=== PATIENT | female | born 1970 | race Caucasian/White ===

== ENCOUNTER 2017-06-23 08:43 | Emergency (ER) | payer OTHER ==
--- NOTE | 2017-06-23 08:51 | EDPHY ---
H & P Time Seen by Provider: 06/23/17 08:51 HPI/ROS: CHIEF COMPLAINT: Dyspnea, palpitations HISTORY OF PRESENT ILLNESS: The patient is a healthy athletic female presents to the ED with a one-week history of intermittent dyspnea and palpitations. The patient reports that there is a family history of atrial fibrillation and she was concerned that she may have developed a condition. The patient exercises frequently without complaints of chest pain or shortness of breath. She has a fairly low resting heart rate. She does endorse some intermittent symptoms of presyncope and reports significant dyspnea yesterday. The patient currently is asymptomatic. She denies any chest pain, asymmetric calf pain or swelling, fever, cough or congestion or other complaints. REVIEW OF SYSTEMS: A comprehensive 10 point review of systems is otherwise negative aside from elements mentioned in the history of present illness. Source: Patient Exam Limitations: No limitations - Medical/Surgical History PMH: Past medical history: Noncontributory - Social History Smoking Status: Never smoked Alcohol Use: None - Physical Exam Exam: General Appearance: Alert, no distress Eyes: Pupils equal and round no pallor or injection ENT, Mouth: Mucous membranes moist Respiratory: There are no retractions, lungs are clear to auscultation Cardiovascular: Bradycardic, no rubs murmurs or gallops Gastrointestinal: Abdomen is soft and nontender, no masses, bowel sounds normal Neurological: 5/5 strength all 4 extremities Skin: Warm and dry, no rashes Musculoskeletal: Neck is supple nontender Extremities: No asymmetric calf pain or swelling, 2+ dorsalis pedis and posterior tibial pulses bilaterally Constitutional: Initial Vital Signs Temperature (C) 36.5 C 06/23/17 08:49 Heart Rate 46 L 06/23/17 08:49 Respiratory Rate 18 06/23/17 08:49 Blood Pressure 124/65 H 06/23/17 08:49 O2 Sat (%) 99 06/23/17 08:49 O2 Delivery Mode Room Air Allergies/Adverse Reactions: No Known Allergies Allergy (Verified 06/23/17 08:49) Home Medications: Medication Instructions Recorded NK [No Known Home Meds] 06/23/17 Medical Decision Making - Diagnostics EKG Interpretation: EKG: Complete interpretation has been separately recorded in the [facility] archive. Summary impression: Sinus bradycardia Imaging Results: Imaging Impressions Chest X-Ray 06/23/17 09:03 Impression: Normal chest x-ray. ED Course/Re-evaluation: The patient presents to the ED with palpitations, dyspnea and slight presyncope. The patient reports the symptoms have been occurring intermittently over the past week. There is no evidence of an obvious arrhythmia noted in the emergency department. The patient does have a chronic sinus bradycardia. The patient's D-dimer test is negative which I feel adequately excludes pulmonary embolism. She has no evidence of heart failure or cardiomegaly noted on her chest x-ray. Given the patient's bradycardia a echocardiogram was obtained and reviewed with the on-call environmental journalist Dr. Longoria. There is no obvious valvular disease, pericardial effusion or significant wall motion abnormality. The patient is well-appearing and hemodynamically stable. She is an active female without any complaints of exertional chest pain or shortness of breath. The patient will be referred to our cardiology service for consideration of a Holter monitor. She is advised to return to the ED for any worsening symptoms or other concerns. Differential Diagnosis: Differential diagnosis considered includes pulmonary embolism, arrhythmia, anemia, dehydration, valvular heart disease, cardiomyopathy - Data Points Laboratory Results: Laboratory Results 06/23/17 09:02 06/23/17 09:02 06/23/17 06/23/17 06/23/17 09:02 09:02 09:02 WBC 5.37 10^3/uL 10^3/uL (3.80-9.50) RBC 4.68 10^6/uL 10^6/uL (4.18-5.33) Hgb 12.4 g/dL L g/dL (12.6-16.3) Hct 38.2 % % (38.0-47.0) MCV 81.6 fL fL (81.5-99.8) MCH 26.5 pg L pg (27.9-34.1) MCHC 32.5 g/dL g/dL (32.4-36.7) RDW 13.4 % % (11.5-15.2) Plt Count 206 10^3/uL 10^3/uL (150-400) MPV 8.7 fL fL (8.7-11.7) Neut % (Auto) 49.6 % % (39.3-74.2) Lymph % (Auto) 41.5 % % (15.0-45.0) [place] % (Auto) 7.1 % % (4.5-13.0) Eos % (Auto) 0.9 % % (0.6-7.6) Baso % (Auto) 0.7 % % (0.3-1.7) Nucleat RBC Rel Count 0.0 % % (0.0-0.2) Absolute Neuts (auto) 2.66 10^3/uL 10^3/uL (1.70-6.50) Absolute Lymphs (auto) 2.23 10^3/uL 10^3/uL (1.00-3.00) Absolute Monos (auto) 0.38 10^3/uL 10^3/uL (0.30-0.80) Absolute Eos (auto) 0.05 10^3/uL 10^3/uL (0.03-0.40) Absolute Basos (auto) 0.04 10^3/uL 10^3/uL (0.02-0.10) Absolute Nucleated RBC 0.00 10^3/uL 10^3/uL (0-0.01) Immature Gran % 0.2 % % (0.0-1.1) Immature Gran # 0.01 10^3/uL 10^3/uL (0.00-0.10) D-Dimer 0.44 ug/mLFEU ug/mLFEU (0.00-0.50) Sodium 139 mEq/L mEq/L (135-145) Potassium 3.8 mEq/L mEq/L (3.5-5.2) Chloride 102 mEq/L mEq/L (97-110) Carbon Dioxide 30 mEq/l mEq/l (22-31) Anion Gap 7 mEq/L L mEq/L (8-16) BUN 16 mg/dL mg/dL (7-23) Creatinine 0.7 mg/dL mg/dL (0.6-1.0) Estimated GFR > 60 Glucose 80 mg/dL mg/dL (70-100) Calcium 9.0 mg/dL mg/dL (8.5-10.4) Troponin I < 0.012 ng/mL ng/mL (0.000-0.034) NT-Pro-B Natriuret Pep 133 pg/mL H pg/mL (0-125) Departure - Departure Disposition: Home, Routine, Self-Care Clinical Impression: Palpitations Condition: Good Instructions: Heart Palpitations (ED) Additional Instructions: 1. Please return to the ED for any markedly worsening symptoms or other concerns. 2. The EKG, blood testing and echocardiogram demonstrated no evidence of acute disease. 3. I do recommend following up with the environmental journalist you have been referred to for consideration of a Holter monitor if you continue to have any symptoms of palpitations. Referrals: Priscilla Ramos MD [Medical Doctor] - As per Instructions
--- NOTE | 2017-06-23 09:02 | CPEKG ---
Heart Rate: 41 RR Interval: 1463 P-R Interval: 136 QRSD Interval: 94 QT Interval: 500 QTC Interval: 413 P [place]: 56 QRS [place]: 51 T Wave [place]: 50 EKG Severity - OTHERWISE NORMAL ECG - EKG Impression: SINUS BRADYCARDIA Electronically Signed By: Orlando Saha 23-Jun-2017 11:26:39
[2017-06-23 09:12] LABS: PLATELET COUNT 206 10^3/uL (150-400)
--- NOTE | 2017-06-23 12:12 | ECHO ---
[email or web address] [address] Main: [phone] Fax: [email or web address] Echocardiogram Name: JOCELYNN PICKARD MR#: [id number] Study Date: 06/23/2017 Study Time: 11:18 AM Date of : 1970 Age: 46 year(s) Height: 170.2 cm (67 in.) Weight: 58.97 kg (130 lb.) BSA: 1.68 m2 Gender: Female Examination: Echo Indication: Image Quality: Adequate Contrast: Requested by: Orlando Saha BP: / Heart Rate: Rhythm: Indication: Procedure Staff Material Expediter: Rynane Villalobos [facility] Reading Physician: Meliton Longoria MD Requesting Provider: Conclusions: Normal global systolic LV function. EF is 61 %. Left atrial enlargement. Mild to moderate mitral regurgitation. There is no significant aortic valve regurgitation. Mild tricuspid regurgitation is present. Measurements: Chambers Valvular Assessment AV/MV Valvular Assessment TV/PV Normal Normal Normal Name Value Range Name Value Range Name Value Range Ao Rosa (2D): 3.0 cm (1.4 cm-2.6 AV Vmax: 1.19 m/s (1 m/s-1.7 TR Vmax: 2.40 mm/s ( - ) cm) m/s) TR PGmax: 23 mmHg ( - ) IVSd (2D): 1.0 cm (0.6 cm-1.1 AV maxP mmHg ( - ) syst. PAP: 28 mmHg ( - ) cm) AV meanP mmHg ( - ) PV Vmax: 0.91 m/s (0.6 m/s-0.9 LVDd (2D): 4.8 cm (3.9 cm-5.3 LVOT Vmax: 0.97 m/s (0.7 m/s-1.1 m/s) cm) m/s) PV PGmax: 3 mmHg ( - ) LVDs (2D): 2.9 cm (2.1 cm-4 SATYA (Vmax): 3.4 cm2 ( - ) cm) SATYA (VTI): 3.1 cm ( - ) LVPWd (2D): 1.0 cm ( - ) MV E Vmax: 0.65 m/s ( - ) LVOTd 2.3 cm 2.3 cm mm MV A Vmax: 0.58 m/s ( - ) LVEF (BP): 61 % (>=55 %) MV E/A: 1.12 ( - ) RVDd(2D): 3.6 cm (1.9 cm-3.8 MV PHT: 0.057 s ( - ) cmmm) MVA (PHT): 3.9 s ( - ) Continued Measurements: Chambers Valvular Assessment AV/MV Valvular Assessment TV/PV Name Value Name Value Name Value Patient: JOCELYNN PICKARD Study Date: 06/23/2017 Page 1 of 2 11:18 AM LADs: 3.7 cm MV DecTime: 216 m/s CVP (est.): 5 mmHg LADs Lon.9 cm MV E/E' Septal: 7.20 LA Area: 24.8 cm2 MV E/E' Lateral: 4.30 LA Volume: 79 ml LA Volume Index: 47.0 ml/m2 RA Area: 22.6 cm2 Additional Vessels Name Value Ao Ascendin.3 cm Inferior Vena Cava: 2.3 cm Findings: Left Ventricle: Normal size left ventricle. No LV hypertrophy. Normal global systolic LV function. EF is 61 %. No regional wall motion abnormality. Normal diastolic LV function. Right Ventricle: Normal size right ventricle. Left Atrium: Left atrial enlargement. Right Atrium: The right atrium is normal in size. Mitral Valve: The mitral valve is normal in appearance and function. Mild to moderate mitral regurgitation. The mitral regurgitation goes from mild to moderate while the patient experiences a PVC. See long clips near end of exam. Aortic Valve: The aortic valve is normal in appearance and function. There is no significant aortic valve regurgitation. No aortic valve stenosis is present. Tricuspid Valve: The tricuspid valve is normal in appearance and function. Mild tricuspid regurgitation is present. The pulmonary artery pressure is normal. Right ventricular systolic pressure measures 28mmHg. Pulmonic Valve: The pulmonic valve is normal in appearance and function. There is no pulmonic regurgitation seen. Aorta: The aorta is normal. Normal size aortic root measuring 3.0 cm. Normal size ascending aorta measuring 3.3 cm. IVC: The IVC is dilated. Pericardium: No pericardial effusion. No pleural effusion. (No Signature Object) Patient: JOCELYNN PICKARD Study Date: 06/23/2017 Page 2 of 2 11:18 AM [id number]
[2017-06-23 13:09] VITALS: BP 99/49
== END 2017-06-23 13:10 | disposition home or self-care (01) ==
DX: R00.2 Palpitations (principal)